=== PATIENT | female | born 1990 | race Caucasian/White ===

== ENCOUNTER 2017-10-25 13:35 | Emergency (ER) | payer OTHER ==
[~2017-10-25] VITALS: Ht 154.9 cm; Wt 58.1 kg
[2017-10-25] MEDS ORDERED: IMITREX20 MG PO (13:48)
[2017-10-25] MEDS ORDERED: CLARITIN10 MG (13:48)
[2017-10-25] MEDS ORDERED: ANTICONCEPTIVAS (13:49)
== END 2017-10-25 20:09 | disposition home or self-care (01) ==
LOC: ER 13:35
DX: J06.9 Acute upper respiratory infection, unspecified (principal); G43.809 Other migraine, not intractable, without status migrainosus; R51 Headache; B34.9 Viral infection, unspecified